=== PATIENT | female | born 2005 | race Caucasian/White ===

== ENCOUNTER 2023-12-22 16:51 | Emergency (ER) | payer OTHER ==
[~2023-12-22] VITALS: Ht 149.9 cm; Wt 63.6 kg
[~2023-12-22 16:51] MED LIST: NOCURR
[2023-12-22 16:54] VITALS: TEMP 98.9
[2023-12-22 17:23] LABS: APPEARANCE,URINE CLEAR (CLEAR); BILIRUBIN,URINE NEGATIVE (NEGATIVE); COLOR,URINE LIGHT YELLOW (YELLOW); GLUCOSE, URINE (UA) NEGATIVE (NEGATIVE); KETONES,URINE NEGATIVE (NEGATIVE); LEUKOCYTE ESTERASE ,URINE NEGATIVE (NEGATIVE); NITRATE,URINE NEGATIVE (NEGATIVE); OCCULT BLOOD,URINE NEGATIVE (NEGATIVE); PH,URINE 7.5 (5.0-8.0); PROTEIN,URINE TRACE mg/dL (NEGATIVE); SPECIFIC GRAVITIY, URINE 1.027 (1.003-1.030); UROBILINOGEN,URINE <=1.0 mg/dL (<=1.0)
[2023-12-22 18:12] LABS: BACTERIA,URINE Many /HPF (None Seen); RBC,URINE None Seen /HPF (0-2); WBC,URINE 0-2 /HPF (0-5)
[2023-12-22 19:20] VITALS: BP 119/73; PULSE 62; RESP 16; O2SAT 99
[2023-12-22 19:29] LABS: HCG,QUAL URINE NEGATIVE (NEGATIVE)
== END 2023-12-22 20:19 | disposition home or self-care (01) ==
LOC: EMS 16:57
DX: R11.2 Nausea with vomiting, unspecified (principal); J45.909 Unspecified asthma, uncomplicated
CPT/HCPCS: 81001; 84703; 87086; 87186; 99283